=== PATIENT | female | born 1955 | race Caucasian/White ===

== ENCOUNTER 2020-03-02 08:15 | Inpatient (IN) | payer OTHER, MEDICARE ==
[~2020-03-02] VITALS: Ht 157.5 cm; Wt 40.0 kg
--- NOTE | 2020-03-02 12:45 | NUR ---
PT ARRIVED ON UNIT AT 1208. PT IS AAOX4. PT HAS LABORED BREATHING WITH RETRACTIONS PRESENT. ALL LOBES ARE VERY TIGHT AND HAVE EXP. WHEEZING PRESENT. ALSO HEARD SOME RALES. PT OVERALL HAS VERY POOR HYGENE. ABD SOUNDS ARE PRESENT. PT ALSO HAS VERY POOR NUTRITION IT SEEMS. PT STATED THAT SHE HAS NOT LEFT HER HOUSE IN YEARS. PT HAS +2 TO +3 PITTING LILIANA FROM THE KNEES DOWN TO HER FEET BILATERALLY. ALL TOES ARE COOL AND VERY CYANOTIC IN APPEARANCE. PT STATED THAT HER TOES HAVE BEEN LIKE THIS FOR 2WKS. CAP REFILL IS ABOUT 5 SECONDS ON ALL TOES. THEY ARE ALSO COOL TO THE TOUCH. WILL SUGGEST TO PUT PT ON BI-PAP. WILL CONTINUE TO MONITOR.
--- NOTE | 2020-03-02 14:00 | NUR ---
IN PTS ROOM TO GIVE IV LASIX. PTS O2 DROPPING TO 82% ON 5L NC. DR SANABRIA NOTIFIED. PLACED ON 15L NON REBREATHER. O2 SAT UP TO 100%. RT NOTIFIED TO BRING BIPAP TO PTS ROOM. ORDER FOR CATHETER. PLACED WITH 12 ML RETURN.
--- NOTE | 2020-03-02 14:35 | NUR ---
PT MAINTAINING O2 SAT IN MID 90S. PLACED BACK ON 5L/NC. 95%.
--- NOTE | 2020-03-02 15:00 | NUR ---
PT NOW ON BI-PAP SINCE SHE DROPPED HER O2 SATS INTO THE 80'S AND HAD TO BE ON 15L O2 NON-REBREATHER UNTIL HER ROOM WAS TURNED INTO A NEGATIVE PRESSURE ROOM. O2 SATS ARE WDL NOW. PT NOW ALSO HAS A ALBERTO DUE TO LASIX ADMINISTRATION.
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
--- NOTE | 2020-03-02 18:56 | NUR ---
CALLED MD WEEKS FOR LOW BP'S. RECEIVED ORDERS. PT IS ASYMPTOMATIC. PT NOW ON 4L 02 NC. RR 20 OR BELOW.
--- NOTE | 2020-03-02 19:15 | NUR ---
Report received, orders acknowledged.
--- NOTE | 2020-03-02 20:15 | NUR ---
Patient laying in bed watching tv. 500 ml bolus of LR hung. PM medications given. Patient on 4LNC, SpO2 of 95%. Vitals taken, assessment complete. Doppler used to palpate pedal pulses. 2+ edema noted in bilateral lower extremities up to the knees. Patient reports "my legs are half as swollen now as they were this morning." Lung sounds are dim and tight throughout all lobes, with expiratory wheezes auscultated. RT in room to administer neb tx. Bipap placed on patient at 12/5 with an FiO2 of 40% during medication administration. Bilateral toes are cold to the touch with cyanosis noted past the nail beds, cap refill sluggish at 4-6 seconds. Patient denies needs at this time, call light within reach.
--- NOTE | 2020-03-02 21:30 | NUR ---
Patient laying in bed watching tv. LR bolus finished infusing, patient saline locked. New CPOX put in place. Patient requests break from bipap, which is accommodated. 4LNC in place, SpO2 of 95%. Patient educated on fluid restriction and 2gm NA diet, patient agreeable. 2144 - Patient back on bipap at 12/5, FiO2 of 40%, SpO2 of 94%, RR of 16. Denies further needs at this time, call light within reach.
--- NOTE | 2020-03-02 23:10 | NUR ---
Patient sleeping in bed with bipap on, settings at 12/5 with an FiO2 of 40% with an SpO2 of 95%, RR of 16. Rouses to voice. Vitals taken, assessment complete. 2+ edema noted in bilateral lower extremities up to the knees. Lung sounds dim and tight throughout all lobes. Urine output of 75 mls over last two hours. Patient requests break from bipap, which is accommodated. 4LNC in place, SpO2 of 97%. Patient requests water, which is provided. Systolic blood pressure ranging from 82-87 over last hour. 2330 - Dr. Stephenson notified of patient's urine output and blood pressures. Orders acknowledged for 500 ml bolus of LR.
--- NOTE | 2020-03-02 23:48 | NUR ---
Patient sleeping in bed, rouses easily to voice. 500 ml bolus of LR infusing. Patient back on bipap at 12/5, FiO2 of 40%, SpO2 of 96%. Denies further needs, call light within reach.
--- NOTE | 2020-03-03 01:30 | NUR ---
Patient sleeping in bed with bipap on: settings at 12/5, Fi02 of 40%, SpO2 of 95%, RR of 16. Urine output of 65 mls from nunn. Systolic pressures in the low 80's. Call light within reach.
--- NOTE | 2020-03-03 01:45 | NUR ---
Dr. Stephenson called and notified of patient's urine output and blood pressure. Orders acknowledged for norepinephrine gtt.
--- NOTE | 2020-03-03 02:27 | NUR ---
Patient sleeping in bed with bipap on: settings at 12/5, FiO2 of 40%, SpO2 of 96% with a RR of 16. Levophed gtt hung at 4mcg/min. IV site patent and benign with arm board in place on right arm. Call light within reach.
--- NOTE | 2020-03-03 03:00 | NUR ---
Patient sleeping in bed with bipap on: settings at 12/5, FiO2 of 40%, SpO2 of 99%, RR of 20. Levophed gtt infusing at 4 mcg/min. BP of 131/80 (92). Levophed gtt titrated to 2 mcg/min. Call light within reach.
--- NOTE | 2020-03-03 05:00 | NUR ---
Patient up to BSC with 1PA, steady on feet. Small, formed BM produced. Returns to bed with 1PA. IV levophed gtt infusing at 2 mcg/min. Patient on 4LNC with an SpO2 of 100%, RR of 16. 530 - Labs drawn and sent to lab.
--- NOTE | 2020-03-03 08:25 | NUR ---
PT SITTING UP IN BED WATCHING TV, BROUGHT IN BREAKFAST HELPED TO GET SCOOTED UP IN BED. PT ALERT AND ORIENTED X4, DENIES PAIN, NAUSEA, AND SOB AT THIS TIME. PT IS COOPERATIVE AND POLITE. IV SITE IS INTACT, NO REDNESS OR SWELLING NOTED, PT DENIES PAIN AT THE SITE.
--- NOTE | 2020-03-03 10:23 | NUR ---
levophed drip off at 1018. pt up ambulated one person assist to the bathroom.
--- NOTE | 2020-03-03 10:35 | NUR ---
ALL LINENS CHANGED ON BED, PT REFUSED GOWN CHANGE AT THIS TIME. PT ALSO REFUSED BATH OR ORAL CARE AT THIS TIME. PT STANDS UP OUT OF BED WITH ONE PERSON STANDBY ASSIST. AMBULATES TO THE BATHROOM WITH ONE PERSON ASSIST. PT SITTING ON THE TOILET, ABLE TO HAVE A SMALL BM. PT HAS ALBERTO IN, SOMETIMES LEAKAGE OF URINE NOTED AROUND ALBERTO. PT NOT INTERESTED IN BRUSHING TEETH AT THE SINK AT THIS TIME. PT AMBULATES TO CHAIR. CALL LIGHT WITHIN REACH. ALL LINENS ON BED CHANGED. PT NOW ON 2L O2 VIA NC, JENIFFER WELL.
--- NOTE | 2020-03-03 11:55 | NUR ---
PT SITTING UP IN CHAIR AT THIS TIME WITH EYES CLOSED. PT HAS CALL LIGHT WITHIN REACH. ALL VITALS ARE WNL AT THIS TIME. PT REMAINS ON 2L NC, O2 SAT IS 97%.
--- NOTE | 2020-03-03 14:25 | NUR ---
TURNED PT 02 DOWN TO 2L NC HER O2 SAT IS 100%. PT IS SITTING UP IN BED WATCHING TV. HAVE ENCOURAGED PT TO INTAKE MORE PO FLUIDS.
--- NOTE | 2020-03-03 17:04 | NUR ---
Spoke with pt by phone for CM assessment as Covid test has not returned. Pt states she lives in [place] with her spouse. She denies seeing a Dr. in > 20 years and does not have a PCP. She states her spouse boss has suggested Dr. Ramirez's office. She denies use of any DME and takes no meds. Plans on going home with her spouse when cleared medically. Called and was able to schedule an appt for Kelsy to establish care with Dr. Jovon Brice at [facility] as requested. Appt Nicole 1 @1400. Pt needs to arrives at 1340. Rn notified in CCU as pt is sleeping. When I returned.
--- NOTE | 2020-03-03 17:30 | NUR ---
AT ABOUT 1700 PT LEFT THE UNIT VIA WHEELCHAIR WITH RN AND COOLING MACHINE OPERATOR. PT ALERT AND ORIENTED X4, REPORTS SOME ANXIETY ABOUT CT SCAN. PT EDUCATED. PT ABLE TO JENIFFER PROCEDURE WELL. PT REPORTS "I FEEL BETTER NOW THAT IT'S OVER". PT TAKEN BACK TO CCU VIA WHEELCHAIR. PT BACK TO BED, DINNER IS AT THE BEDSIDE. PT ASSISTED TO REPOSITION TO EAT, AND ASSISTED TO CHARGE CELL PHONE. PT HAS CALL LIGHT WITHIN REACH.
--- NOTE | 2020-03-03 17:48 | EKG ---
[facility] [address] [place], [place] [address] Signed Sinus rhythm with short [place] Possible Left atrial enlargement Right axis deviation Anteroseptal infarct , age undetermined Abnormal ECG No previous ECGs available Confirmed by RAUDEL WEEKS DO ([id number]) on 03/03/2020 5:48:10 PM Electronically Signed By: RAUDEL WEEKS DO 03/03/20 1748 PATIENT NAME: FLORENCIA ADAMS Electrocardiogram DATE OF : 53 PHYSICIAN: RAUDEL WEEKS DO REPORT #: [id number] REPORT IS CONFIDENTIAL AND NOT TO BE RELEASED WITHOUT AUTHORIZATION
--- NOTE | 2020-03-03 18:30 | NUR ---
PT TALKING ON CELL PHONE WITH , NO SOB NOTED. PT ABLE TO EAT 100% OF DINNER. PT DENIES PAIN, NAUSEA, AND SOB.
--- NOTE | 2020-03-03 19:15 | NUR ---
Report received, orders acknowledged. Patient up to BSC, feels urge to have a bowel movement. Call light at patient's side.
--- NOTE | 2020-03-03 19:30 | NUR ---
Patient calls, finished at BSC. Would like to return to bed. 1PA to the bed. RT in room to administer neb tx. Assessment complete. 2+ pitting edema noted in bilateral lower extremities. Expiratory wheezes heard throughout all lung ramirez. Patient states "I feel pretty good tonight." Warm blankets provided, water refreshed. Denies further needs, call light within reach.
--- NOTE | 2020-03-03 21:00 | NUR ---
Patient laying in bed watching tv. Bed bath and shower cap provided. New gown for patient. Patient not interested in brushing teeth, would like to wait until the morning. 4LNC in place, SpO2 of 93%. HR in the 100's. Plan to resume bipap at 2200, patient agreeable. Call light within reach.
--- NOTE | 2020-03-03 22:00 | NUR ---
Patient laying in bed watching tv. Bipap put on patient: settings at 12/5, FiO2 of 40%, RR of 16, SpO2 of 95%. HR in the 90's. Call light within reach.
--- NOTE | 2020-03-03 22:58 | NUR ---
Patient requests a break from bipap, which is accommodated. 4LNC in place, Sp02 of 94%. PO intake with bipap mask off. Denies any needs at this time, call light within reach.
--- NOTE | 2020-03-03 23:28 | NUR ---
Patient SpO2 fluctuating between 87-89% on 2LNC. Bipap put on patient: settings at 12/5, Fi02 of 40%, RR of 14. SpO2 increases to 94% on bipap. Call light within reach.
--- NOTE | 2020-03-04 00:29 | NUR ---
Patient laying in bed watching tv, drowsy. Assessment complete. Lung sounds tight throughout all lung ramirez with expiratory wheezes auscultated. 2+ pitting edema noted in right lower extremity up to the knee. 1+ pitting edema noted in the left lower extremity, ending six inches below the knee, which is improved from earlier assessment. Urine output of 550 mls. Water refreshed. 2LNC in place with an SpO2 of 92-94%. Patient denies further needs, call light within reach.
--- NOTE | 2020-03-04 01:35 | NUR ---
Patient sleeping in bed, respirations even and unlabored. 2LNC in place, SpO2 of 94%, RR of 14. Call light within reach.
--- NOTE | 2020-03-04 02:09 | NUR ---
Patient sleeping with 2LNC in place, SpO2 of 91%. Bipap put on patient: settings at 12/5, Fi02 of 40%, RR of 14, and an SpO2 of 94%. Patient falls back asleep easily. Call light within reach.
--- NOTE | 2020-03-04 03:35 | NUR ---
Patient sleeping in bed with bipap on: settings at 12/5, Fi02 of 40%, SpO2 of 94%. Patient requests break from bipap, 2LNC in place. Sp02 falls to 85-88% on 2LNC. Oxymask placed on patient at 2LNC, Sp02 climbs to 96-98%. Assessment complete, lung sounds dim throughout all ramirez. Expiratory wheezes noted in bases. 100 mls emptied from nunn catheter. Pitting edema noted in bilateral extremities, 2+ on right leg and 1+ on left leg. Vital signs taken. Patient denies further needs, falls back asleep easily. Call light within reach.
--- NOTE | 2020-03-04 04:08 | NUR ---
RT in room to administer neb tx, patient declines tx at this time.
--- NOTE | 2020-03-04 04:16 | NUR ---
Patient titrated to 1L oxymask, Sp02 ranges from 96-98%. Patient sleeping in bed, call light within reach.
--- NOTE | 2020-03-04 05:14 | NUR ---
Lab in room with patient for blood draw
--- NOTE | 2020-03-04 07:46 | NUR ---
PT AWAKE AND ALERT X4, SITTING UP IN BED ON ROOM AIR, O2 SAT IS 95%. PT ORDERED BREAKFAST. APPEARS COMFORTABLE AT THIS TIME.
--- NOTE | 2020-03-04 09:05 | NUR ---
pt boosted up in bed and assisted to reposition for eating breakfast. pt placed on 2L O2 via NC for eating. pt is alert and oriented x4, denies pain, nausea, and sob. call light is within reach.
--- NOTE | 2020-03-04 11:05 | NUR ---
full report given to Edwina PARDO via phone, all questions answered.
--- NOTE | 2020-03-04 11:45 | NUR ---
PT IV SITE IS INTACT, NO REDNESS OR SWELLING NOTED, FLUSHES EASILY. PT ASSISTED UP TO AMBULATED TO THE BATHROOM, IN TRANSIT SLIGHT INCONTINENCE OF STOOL. PT ABLE TO HAVE MEDIMUM SIZE SEMISOFT STOOL. PT ASSISTED WITH JAVON CARE, GOWN CHANGED. PT ONE PERSON ASSIST BACK TO BED. DURING THIS TIME UP TO THE TOILET PT ON ROOM AIR DUE TO URGENCY. ONCE PT BACK TO BED, O2 SAT IS 72% ON ROOM AIR, OXYMASK PLACED BACK ON PT AT 5L, O2 SATS RECOVERED TO THE 90'S WITHIN 5 MINUTES. PT THEN ASSISTED TO THE CHAIR IN PREPARATION TO TRANSFER TO MED/SURG. PT REPORTS FEELING MUCH BETTER.
--- NOTE | 2020-03-04 12:00 | NUR ---
PT ARRIVED TO THE FLOOR VIA CHAIR. PT ALERT AND ORIENTED AND HAS NO CONPLAINTS AT THIS TIME. PT ON THE PHONE WITH HER DURING TRANSFER PROCESS TO HELP WITH SOME ANXIETY. PT DOES NOT TO BE ANXIOUS AT THIS TIME
--- NOTE | 2020-03-04 12:01 | NUR ---
PT TRANSFERED TO ROOM 120 ON MED/SURG, ALL PERSONAL BELONGINGS WENT WITH PT. PT TRANSFERED VIA CHAIR WITH 3L O2 VIA OXYMASK. PT ABLE TO TALK ON THE PHONE WITH DURING TRANSFER. PT REMAINS ALERT AND ORIENTED X4, COOPERATIVE AND POLITE.
--- NOTE | 2020-03-04 14:08 | NUR ---
PATIENT AWAKKE IN BED, OXYMASK ON. VITALS AND I&OS DONE AND CHARTED. NOTIFIED EDVIN GOODE OF LOW BP. PT IN WITH PATIENT NOW.
--- NOTE | 2020-03-04 14:20 | NUR ---
IN PTS ROOM TO GIVE 60MG OF LASIX. PT STATES THAT WHEN THEY PUSHED IT EARLIER THAT IT LEFT A HORRIBLE TASTE IN HER MOUTH, THIS RN PUSHED THE MED VERY SLOWLY AND FLUSHED SLOWLY WELL. ASKED PT IF SHE HAD THE WEIRD TASTE AT THIS TIME AND PT DENIED. PLACED THE LEMON GLYCERIN SWABS ON PTS BEDSIDE TABLE IN CASE SHE GETS THE BAD TASTE IN HER MOUTH. OCCUPATIONAL THERAPY IN ROOM WORKING WITH PT AT THIS TIME
--- NOTE | 2020-03-04 17:27 | NUR ---
PATIENT AWAKE IN BED. VITALS AND I&OS DONE AND CHARTED. CALL LIGHT IN REACH. NO OHTER NEEDS
--- NOTE | 2020-03-04 20:09 | NUR ---
COMMUTER TRAIN OPERATOR ROUNDING NOTE. PT RESTING IN BED AWAKE, WATCHING TV. OXYMASK IN PLACE. PT DENIES QUESTIONS, CONCERNS, OR NEEDS. CALL LIGHT IN REACH. ROOM IN VIEW OF RN STATION. WHITE BOARD UPDATED.
--- NOTE | 2020-03-04 20:32 | NUR ---
In bed, Oxymask in place, Bipap at bedside, SL patent. Coop with assessment fluidsa at bedside
--- NOTE | 2020-03-04 21:33 | NUR ---
Anxious, reassured easily, repositions self in bed. Gets mariella tx.
--- NOTE | 2020-03-05 00:58 | NUR ---
resating, eys closed, wearing oxymask. calm. call light at hands reach
--- NOTE | 2020-03-05 06:29 | NUR ---
ON 4L OXYMASK, NO SOB WITH EXERTION. LUNGS DIM WITH FINE CRACKLES AT BASES. HAD 1 EPISODE OF FEELING VERY ANXIOUS, REASSURED, CALMED DOWN. SLEPT WELL. 1PA, SLIGHTLY UNSTEADY GAIT AT TIMES. L ABOVE THE ELBOW ARM AMPUTATION F/C PATENT, DRAINING QS URINE. TOLERATING FLUIDS AND DIET WELL. LABS DRAWN THIS AM. COOP. UP TO CHAIR AT THIS TIME. DAILY STANDING WEIGHT 43.6KG
--- NOTE | 2020-03-05 06:38 | NUR ---
NHUNG FU ASSISTED PATIENT TO BATHROOM AND BACK TO BED. PATIENT RESTING IN BED, CALL LIGHT IN REACH. NO FURTHER NEEDS AT THIS TIME
--- NOTE | 2020-03-05 07:46 | NUR ---
received report from bam cornelius. pt appears to be resting at this time with respirations noted and call light within reach
--- NOTE | 2020-03-05 09:55 | NUR ---
IN PTS ROOM TO GIVE MEDS AND DO ASSESSMENT. WHILE PASSING MEDS. PT STATED THAT SHE NEEDED TO USE THE RESTROOM "RIGHT NOW" PT WAS GETTING UP IT WAS NOTICED THAT PT WAS INCONTINENT IN THE BED. THIS RN GOT PT TO THE BEDSIDE COMMODE AND STARTED CLEANING THE BED. THIS RN ASKED MANE HOOKER TO ASSIST IN HELPING CHANGE THE LINIEN AND PERFORM CATH CARE ON PT. PT BECAME OVERWHELMED WITH ALL OF THIS GOING ON AND HAD ANXIETY ATTACK THAT LED TO HER BECOMING SHORT OF BREATH. THIS RN EDUCATED PT TO KEEP HER OXYMASK ON AND TAKE GOOD DEEP BREATHS. PT ABLE TO CALM HERSELF BY TAKING DEEP BREATHS. ABLE TO GET PT CLEANED UP WITH A TOTAL BED CHANGE AND GOWN CHANGE.
--- NOTE | 2020-03-05 10:47 | NUR ---
PATIENT HAD INCONT BM. GOT UP TO BSC. LINENS CHANGED. JAVON CARE, CATH CARE DONE. NEW GOWN. PATIENT NOW BACK TO BED, 1PA, WATCHING TV. CALL LIGHT IN REACH. NO FURTHER NEEDS AT THIS TIME.
--- NOTE | 2020-03-05 13:23 | NUR ---
in pts room to give afternoon meds and do assessment. pt has no complaints at this time
--- NOTE | 2020-03-05 14:07 | NUR ---
PATIENT IN BED RESTING. WARM SHOWER CAP GIVEN. FRESH WATER GIVEN. CALL LIGHT IN REACH. NO FURTHER NEEDS AT THIS TIME.
--- NOTE | 2020-03-05 18:51 | NUR ---
PATIENT IN BED WATCHING TV. CALL LIGHT IN REACH. NO FURTHER NEEDS AT THIS TIME.
--- NOTE | 2020-03-05 19:06 | NUR ---
PATIENT HAD JAVON CARE ALBERTO CARE THIS MORNING BUT HAS REFUSED OTHER CARE THROUGH OUT THE DAY BECAUSE SHE SIAD MOVING AROUND MADE HER SICK.
--- NOTE | 2020-03-05 20:33 | NUR ---
COMBINATION MACHINE TOOL SETTER ROUNDING NOTE. PT RESTING IN BED WATCHING TV. DECLINES QUESTIONS, CONCERNS, OR NEEDS AT THIS TIME. CALL LIGHT IN REACH. WHITE BOARD UPDATED.
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
--- NOTE | 2020-03-05 22:21 | NUR ---
EMPTIED ALBERTO BAG 75 ML. PATIENT REFUSED TO HAVE ALBERTO CARE. STATED SHE IS HAVING HARD TO BREATHE. CHEKED O2 SATURATION AND HAVE OXYMASK ON WENT TO 9I%. PATIENT STATED SHE IS OKAY BREATHING NOW. PRIMARY RN NOTIFIED.
--- NOTE | 2020-03-05 22:40 | NUR ---
RESTING, O2 2L OXYMASK IN PLACE, UO 75CC THIS SHIFT. DR CARDENAS NOTIFIED VIA WRITTEN NOTE. NO NEW ORDERS. CALL LIGHT AT BEDSIDE, ON FLUIDS RESTRICTIONS TOLERATING WELL
--- NOTE | 2020-03-06 00:55 | NUR ---
resting, O2 2L Oxymask, no resp distress noted, resp even, unlabored turns self in bed. call light and fluids at bedside
--- NOTE | 2020-03-06 02:17 | NUR ---
RESTING, OXYMASK IN PLACE, NO SOB OR RESP DISTRESS NOTED AT THIS TIME. HOB ELEVATED TO HER COMFORT, F/C PATENT. CALL LIGHT AND FLUIDS AT BEDSIDE,
--- NOTE | 2020-03-06 02:57 | NUR ---
Pt stated she was hot and could not breath, reapplied O2 mask, changed pt gown, removed blankets, turned heat down, called RN to assist.
--- NOTE | 2020-03-06 02:57 | NUR ---
Pt woke up very anxious "i was having a nightmare stated", Oxymask at 2L sats were 70% c/o being hot, anxious, feeling warm, had taken Oxymask off,.O2 was momentarily increased to help pt catch up, plus CDB. Reassured. O2 Back on o2, at this time sats are 90% on 2L. calmer. coop with assessment, lungs with faint crackles t/o. Helped with repositioning, f/c patent. watching tv. fresh fluids at bedside
--- NOTE | 2020-03-06 05:59 | NUR ---
sLEPT MOST OF THI SSHIFT, COOPERATIVE, ON 2l oXYMASK IN PLCAE, HAD ONE EPISODE OF ANXIETY WITH SOB, AND SHE TOOK OFF HER O2 MASK., REASSURED AND CALMED DOWN, SATS UP 90% AFTERWARDS. HELPS WITH TURNING IN BED 1PA, L ABOVE THE ELBOW AMPUTAION . F/C PATENT, DRAINING DARK YELLOW URINE, LOW OUTPUT, MD AWARE. PT TOLERATING LIQUIDS WELL, NO C/O PAIN. GETS NEBS. FINE CRACKLES , SOB WITH EXERTION NOTED WHEN AMBULATING TO BR X1. FALL PRECAUTIONS IN PLACE.
--- NOTE | 2020-03-06 06:02 | NUR ---
JAVON/ALBERTO CARE DONE.
--- NOTE | 2020-03-06 06:14 | NUR ---
sLEPT MOST OF THI SSHIFT, COOPERATIVE, ON 2l oXYMASK IN PLCAE, HAD ONE EPISODE OF ANXIETY WITH SOB, AND SHE TOOK OFF HER O2 MASK., REASSURED AND CALMED DOWN, SATS UP 90% AFTERWARDS. HELPS WITH TURNING IN BED 1PA, L ABOVE THE ELBOW AMPUTAION . F/C PATENT, DRAINING DARK YELLOW URINE, LOW OUTPUT, AWARE. PT TOLERATING LIQUIDS WELL, NO C/O PAIN. GETS NEBS. FINE CRACKLES , SOB WITH EXERTION NOTED WHEN AMBULATING TO BR X1. FALL PRECAUTIONS IN PLACE. DAILY STANDING WEIGHT 40.3 KG. aWAKE AND CALM AT THIS TIME. F/C PATGENT
--- NOTE | 2020-03-06 07:10 | NUR ---
received report from bam cornelius. pt appears to be resting with respirations noted and call light within reach
--- NOTE | 2020-03-06 09:30 | NUR ---
IN PTS ROOM TO GIVE MORNING MEDS AND DO PTS ASSESSMENT. PT STATES WHEN THIS RN ENTERS THAT SHE THINKS SHE WAS INCONTINENT OF STOOL. PT WAS INDEED INCONTINET OF STOOL THIS AM. THIS RN TO HOLD PTS MIRALAX. MANE HOOKER ASSISSTED THIS RN TO CLEAN PT UP AND PERFORM CATH CARE. PT HAD TO TAKE TWO BREAKS DUE ANXIETY INDUCED SHORTNESS OF BREATH. PT ABLE TO CALM HERSELF DOWN WITH GOOD DEEP BREATHING.
--- NOTE | 2020-03-06 10:24 | NUR ---
IV attempt X2 at this time failed. Immediate blood return that blow with attempt to advance catheter.
--- NOTE | 2020-03-06 10:38 | NUR ---
PATIENT IN BED RESTING. PATIENT HAD INCONT BM EARLIER, JAVON CARE AND CATH CARE DONE. LINENS CHANGED. OFFERED SHOWER CAP, BEDBATH WIPES, ORAL CARE AND AM CARE, PATIENT REFUSED AT THIS TIME. CALL LIGHT IN REACH. NO FURTHER NEEDS AT THIS TIME.
--- NOTE | 2020-03-06 14:15 | NUR ---
IN PT ROOM TO CHECK ON PT AND DO ASSESSMENT. PTS AT BEDSIDE. THIS RN DID SOME PT EDUCATION IN REGARDS TO PTS MEDS ESPECIALLY LASIX AND THAT SHE AND HER SHOULD CONSIDER ADDING POTASSIUM INTO HER DIET. ALSO DISCUSSED WITH PT ABOUT KEEPING HER FEET UP TO PREVENT SWELLING. ALSO DISCUSSED WITH PT ABOUT STAYING ON A LOW SODIUM DIET
--- NOTE | 2020-03-06 17:52 | NUR ---
PATIENT IN BED WATCHING TV. PATIENT STILL REFUSING SHOWER AND ORAL CARE. CALL LIGHT IN REACH. NO FURTHER NEEDS AT THIS TIME.
--- NOTE | 2020-03-06 20:01 | NUR ---
IN BED, O2 2L NC IN PLACE, TOLERATING WELL, COOP WITH VS ANDASSESSMENT, LUNGS DIM AND MUCH IMPROVED THAN YESTERDAY, AFFECT IMPROVED, SMILING, CALM. REASSURED. REPOSITIONS SELF IN BED, TOLERATING FLUIDS RESTRICTION WELL. CALL LIGHT AT BEDSIDE
--- NOTE | 2020-03-06 23:03 | NUR ---
O2 2L NC, RESTING, EYES CLOSED, HOB ELEVATED TO HER COMFORT, F/C PATENT. CALM FLUID RESTRICTION IN PLACE. NO EMESIS. CALL LIGHT AT BEDSIDE
--- NOTE | 2020-03-07 05:55 | NUR ---
PT SLEPT, O2 WEANED DOWN TO 1L NC, SATS 97% STEADY, NO COUGH NO SOB AT THIS TIME, LUNGS CLEAR UPPERS, DIM AT BASES. L ABOVE ELBOW AMPUTAION. F/C DRAINING QS DARK YELLOW URINE, HAD 1 BM AT BEGINING OF SHIFT. NO C/O PAIN, TOLERATIANG 1800 CC FLUIDS RESTRICTION, NO ANXIETY EPISODES THIS SHIFT, CALM USES CALL LIGHT APPROPRIATELY
--- NOTE | 2020-03-07 07:15 | NUR ---
REVEIVED REPORT FROM ROBERT PARDO. PT APPEARS TO BE RESTING AT THIS TIME WITH RESPIRATIONS NOTED AND CALL LIGHT WITHIN REACH
--- NOTE | 2020-03-07 09:50 | NUR ---
IN PTS ROOM TO GIVE MORNING MEDS AND TO DO PTS ASSESSMENT. PT SLEEPING AND IS HARD TO WAKE UP. PT WAS INCONTINENT OF BOWEL AND HER ALBERTO CATHETER HAD LEAKED. MANE BARRONA IN TO HELP THIS RN TO DO A FULL BED CHANGE. PT STATED THAT SHE CAN FEEL HER ALBERTO CATHETER BETTER THAN SHE CAN FEEL WHEN SHE HAS TO HAVE A BOWEL MOVEMENT. PT DID HAVE AT LEAST 2 ANXITEY ATTACKS WHILE DOING BED CHANGE, BUT PT WAS ABLE TO SELF SOOTHE AND CALM HERSELF DOWN
--- NOTE | 2020-03-07 10:33 | NUR ---
PATIENT HAD LARGE INCONT BM. JAVON CARE, CATH CARE, SKIN CARE DONE. PATIENT HAS A LOT OF ANXIETY WHEN DOING PATIENT CARE SO PATIENT REFUSED ALL OTHER CARE AT THIS TIME. RN IN ROOM HELPING WITH PATIENT CARE. LINENS CHANGED. CALL LIGHT IN REACH. NO FURTHER NEEDS AT THIS TIME.
--- NOTE | 2020-03-07 13:57 | NUR ---
1215 O2 HOME EVAL WIDE FLUCTUATION IN PERIPHERAL SATURATIONS WERE NOTED PT WAS PLACED ON NASAL ALAR O2 PROBE THIS IMPROVED MEASUREMENTS TO A DEGREE THAT WE WERE ABLE TO TO PERFORM O2 HOME EVAL. TEST WAS PERFORMED WITH ASSISTANCE FROM PHYSICAL THERAPY. AT REST ON RA PT SAT 77-80%, PT REQUIRED 2L/M OXYMASK TO MAINTAIN SATS WHILE SITTING AT BEDSIDE. WITH EXERCISE O2 HAD TO BE TITRATED UP TO 10L/M OXYMASK PT PREVENT DESATUATION BELOW 90%. AT 10L/M PT WAS ONLY ABLE TO TOLERATE BRIEF PERIODS OF EXERCISE BEFORE GETTING SOB AND NEEDING TO SIT AND REST.
--- NOTE | 2020-03-07 14:18 | NUR ---
IN PTS ROOM TO DO ASSESSMENT. PT STATES THAT SHE FEELS SLIGHTLY SHORT OF BREATH. PT HAS HAD A LOT OF PEOPLE IN AND OUT OF HER ROOM TODAY AND HAS HAD A LOT OF ANXIETY IN REGARDS TO THAT. SHORTNESS OF BREATH DUE TO COPD VS. ANXIETY PT DENIES NEEDING ANYTHING AT THIS TIME.
--- NOTE | 2020-03-07 14:37 | NUR ---
PATIENT IN BED WATCHING TV. LOW OUTPUT, RN NOTIFED. CALL LIGHT IN REACH. NO FURTHER NEEDS AT THIS TIME.
--- NOTE | 2020-03-07 14:45 | NUR ---
SPOKE TO PATIENT IN ROOM. PATIENT STILL INTENDS TO RETURN HOME WITH AT DISCHARGE. PATIENT AWARE SHE MAY NEED HOME OXYGEN AT DISCHARGE. DISCUSSED THAT SOMETIMES INSURANCE WILL NOT COVER HOME O2 FOR ACUTE PERIOD. DISCUSSED WHAT GALLEGOS CAN BE FOR A MONTH. DISCUSSED THAT THE NEED CAN BE REASSESSED IN 3-4 WEEKS AT PCP AND IF SHE STILL QUALIFIES THEY MAY PAY. SHE STATES UNDERSTANDING. PATIENT CANNOT TALK MORE THAN A FEW WORDS EASILY WITH SOB. SHE HAS NO QUESTIONS AT THIS TIME.
--- NOTE | 2020-03-07 15:45 | NUR ---
BEDSIDE REPORT FROM RUSSEL - PT DENIES NEEDS, CALL LIGHT IN REACH
--- NOTE | 2020-03-07 16:46 | NUR ---
WENT IN TO DISCUSS WITH PATIENT NEED FOR OXYGEN AT HOME. DISCUSSED OPTIONS IN AREA. SHE STATES SHE WANTS TO TALK WITH HER . WHILE I WAS THERE SHE ASKED FOR HELP TO USE COMMODE. ASKED IF SHE HAS BEEN ABLE TO GET TO BATHROOM WITH MINIMAL ASSIST. SHE STATES NO. WE DISCUSSED THAT SHE WANTS TO RETURN HOME TOMORROW FOR DISCHARGE BUT THAT PT NOTES STATES SHE CANNOT STAND WELL ON OWN DUE TO UNSTEADY AND SOB. SHE AGREES SHE CAN'T. ASKED IF SOMEONE WAS GOING TO BE WITH HER DURING THE DAY WHILE HER WORKS, SHE STATES NO. ASKED IF SHE THINKS SHE CAN GET SOMETHING TO EAT, OR USE BATHROOM ALONE AT HOME. SHE STATES "NO, PROBABLY NOT". ASKED IF SHE WOULD BE WILLING TO GO TO [facility] FOR CARE AND TIME TO SEE IF SHE CAN GET STRONGER. SHE STATES SHE DOESN'T KNOW. DISCUSSED WHERE THOSE ARE LOCATED IN THE AREA. SHE WANTS TO TALK WITH HER . DISCUSSED THAT SHE IS UNSURE WHAT SHE WANTS GOING FORWARD. SHE STATES SHE WANTS TO SEE THE NEW PCP AND SEE IF SHE CAN GET ANY BETTER. DISCUSSED THAT PERHAPS A CARE CONFERNCE CAN BE HELD WITH HER HERE TO GO OVER HER SITUATION AND GIVE THEM A CHANCE TO ASK QUESTIONS TO HELP HER DECIDE. SHE STATES SHE WILL TALK WITH HIM AFTER WORK. STAFF IN TO HELP HER.
--- NOTE | 2020-03-07 17:38 | NUR ---
PT ASSISTED TO ORDER DINNER. DENIES OTHER NEEDS AT THIS TIME.
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
--- NOTE | 2020-03-07 18:56 | NUR ---
PATIENT IN BED WATCHING TV. WARM BLANKET GIVEN. CALL LIGHT IN REACH. NO FURTHER NEEDS AT THIS TIME.
--- NOTE | 2020-03-07 19:05 | NUR ---
BEDSIDE REPORT RECEIVED FROM OFFGOING RNERIN. PT'S ENTERING THE ROOM REPORT ENDING.
--- NOTE | 2020-03-07 21:30 | NUR ---
PT ASSESSMENT COMPLETE. PT RESTING IN BED WATCHING TV. PT DENIES PAIN OR NAUSEA. STATES THAT SOB IS WNL FOR HER. PT HOLDING OXYMASK TO HER FACE, WHICH SHE STATES IS HER PREFERENCE. LUNG SOUNDS DIM THROUHGOUT ALL LUNG MULLIGAN. BREATHING IS LABORED. 02 @ 2LPM. PT CURRENTLY DECLINES NEBS, WILL CALL IF SHE DECIDES SHE WANTS A TREAMENT.ALBERTO CATH DRAINING YELLOW CONCENTRATED URINE. PT BOOSTED IN BED, VS OBTAINED. PT DENIES FURTHER NEEDS AT THIS TIME. CALL LIGHT IN REACH.
--- NOTE | 2020-03-07 23:11 | NUR ---
PT RESTING IN BED WITH EYES CLOSED. WAKES EASILY WHEN VP PUBLISHER DEVELOPMENT OPENS THE DOOR. STATES THAT SHE WAS LISTENING TO HER TV AND FELL TO SLEEP. AGREES WITH VP PUBLISHER [employer]ELOPMENT THAT SHE IS VERY COMFORTABLE RIGHT NOW, AND STATES SHE IS MORE COMFORTABLE THAN SHE CAN REMEMBER BEING IN A WHILE. PT DENIES NEEDS, CALL LIGHT IN REACH.
--- NOTE | 2020-03-08 02:00 | NUR ---
PT RESTING IN BED WITH EYES CLOSED. RESPIRATIONS EVEN, APPEAR LABORED. PT DOES NOT WAKE WHILE PERL PROGRAMMER IN DOORWAY. APPEARS TO BE SLEEPING. CALL LIGHT IN REACH.
--- NOTE | 2020-03-08 04:27 | NUR ---
PT UTILIZES CALL LIGHT, REQUESTS TO USE COMMODE. PT UP TO COMMODE AND BACK TO BED WITH 1PA. PT TOLERATED WELL. PT ASSESSMENT COMPLETE DENIES PAIN OR NAUSEA. PT STATES THAT SOB IS ABOUT THE SAME USUAL. LUNG SOUNDS DIM TO ALL LUNG MULLIGAN, BREATHING IS LABORED WITH ACCESSORY MUSCLE USE. [address] @ 2 LPM VIA OXY MASK. ALBERTO CATH DRAINING YELLOW URINE, CONCENTRATED. PT DENIES FURTHER NEEDS AT THIS TIME. CALL LIGHT IN REACH. ROOM IN VIEW OF RN STATION.
--- NOTE | 2020-03-08 07:00 | NUR ---
BEDSIDE HANDOFF REPORT RECEIVED FROM MANAGER STONE RN. PT RESTING IN BED. PT ON 2L OXYMASK. PT DENIES NEEDS AT THIS TIME.
--- NOTE | 2020-03-08 08:30 | NUR ---
PT RESTING IN BED. PT ON 2L OXYMAKS, LABORED BREATHING, LUNG SOUNDS DIMINISHED THROUGHOUT. PT WITH SMALL APPETITE, ATE APPLE SAUCE FOR BREAKFAST, DENIES NAUSEA, BOWEL TONES ACTIVE. PT WITH LEFT ARM AMPUTATION, CMS OTHERWISE INTACT. ALBERTO CATH IN PLACE. PT DENIES OTHER NEEDS AT THIS TIME. PLAN FOR BEDBATH TODAY.
--- NOTE | 2020-03-08 09:00 | NUR ---
In and spoke with Kelsy. Discussed where she would like to go on DC. She would like to go home. Has a lengthy discussion if this is practical as she is unable to care for herself, does not have a caregiver, and her spouse works multimedia services coordinator. Discussed [facility] and cg. She does not know any CG. Discussed this can take 2-3 weeks to set up cg in [facility]. She asks I call her . She states she will do whatever needs to be done. Called and spoke with her Salvatore. He states he is unable to care for Kelsy at home. He works multimedia services coordinator. He also states his concern she cannot care for her self. He would like to speak with Dr. Ribeiro as he has questions concerning her medical condition. He will come in at 12:00 for a family conference in pts' room. Dr. Ribeiro notified.
--- NOTE | 2020-03-08 10:48 | NUR ---
PATIENT IN BED WATCHING TV. OFFERED PATIENT AM CARE, ORAL CARE, AND SHOWER/BED BATH, PATIENT SAID NOT NOW. PATIENT SAID SHE WOULD LET ME KNOW WHEN SHE FEELS UP TO A BED BATH. FRESH WATER GIVEN. CALL LIGHT IN REACH. NO FURTHER NEEDS AT THIS TIME.
--- NOTE | 2020-03-08 11:19 | NUR ---
PT RESTING IN BED. PT DENIES OTHER NEEDS AT THIS TIME.
--- NOTE | 2020-03-08 12:00 | NUR ---
Pt's , Salvatore, in for care conference with myself, Dr. Ribeiro, and his brother by speaker phone. Dr. Ribeiro explained prognosis and options discussed. Salvatore feels pt needs to go to a SNF for at least 20 days until he can get hospice and cg set up in the home. Pt is in agreement. with this. Chart was sent to [facility] this am.
--- NOTE | 2020-03-08 13:53 | NUR ---
PT RESTING IN BED, USING O2 MASK. PT MENTIONED THTA SHE SLEPT REALLY WELL LAST NIGHT. PT ALSO STATED THAT SHE FEELS ALITTLE UNINFORMED ABOUT HER CARE, BUT IS EXPECTING HER TODAY AFTER WORK AND FEELS HE WILL UPDATE HER. GAVE PT Vanita FU AND GREGORIA AND LEAHSSCELI
--- NOTE | 2020-03-08 14:30 | NUR ---
PT RESTING IN BED. OXYMASK LAYING ON CHEST, 02 SATS 68%, OXYMASK RESUMED AND INCREASED TO 5L, PT RECOVERED AND OXYGEN TITRATED TO 2L, LUNG SOUNDS DIMINSHED THROUGHOUT. PT AGREEABLE TO BED BATH, COMPLETED WITH HYPERBARIC TECHNOLOGIST, PT POORLY TOLERATED ACTIVITY, GIVEN REST PERIODS, O2 SATS MONITORED THROUGHOUT BATH. PT WITH ALBERTO CATH LEAKING URINE, PERICARE PERFORMED. PT WITH BLANCHABLE REDNESS TO COCCYX, STAGE 1 DECUBITUS SORE TO BILATERAL HEELS, HEELS FLOATED ON PILLOW. PT DENIES OTHER NEEDS AT THIS TIME. PT EDUCATED ON OXYMASK AND TO KEEP IN PLACE TO PREVENT HYPOXIA.
--- NOTE | 2020-03-08 15:18 | NUR ---
ME AND RN GAVE PATIENT BEDBATH. LINENS CHANGED. JAVON CARE AND CATH CARE DONE. CALL LIGHT IN REACH. NO FURTHER NEEDS AT THIS TIME.
--- NOTE | 2020-03-08 18:38 | NUR ---
PATIENT IN BED WATCHING TV. CALL LIGHT IN REACH. NO FURTHER NEEDS AT THIS TIME.
--- NOTE | 2020-03-08 19:29 | NUR ---
REPORT RECEIVED FROM DAY SHIFT RN. PT LYING IN BED, ALERT AND ORIENTED. 2L/OXYMASK IN PLACE. REMY PATENT. DENIES NEEDS. WHITE BOARD UPDATED. CALL LIGHT IN REACH.
--- NOTE | 2020-03-08 22:59 | NUR ---
V/S AND I&O TALEN AND RECORDED. ALBERTO/JAVON CARE DONE. CHOCOLATE COOKIE PROVIDED.
--- NOTE | 2020-03-08 23:07 | NUR ---
EVENING ASSESSMENT COMPLETE. PT REFUSED SCHEDULED STOOL SOFTENER. UPON ENTERING ROOM PT HAD OXYMASK OFF. SPO2 71%. WITH MASK SPO2 90% ON 2L. RR 24 AND LABORED. ALBERTO CATH LEAKING, PAD CHANGED UNDER PT. ALBERTO CARE DONE. REPOSITIONED IN BED, PT JENIFFER FAIR. EVENING SNACK PROVIDED. PT DENIES FURTHER NEEDS. CALL LIGHT IN REACH .
--- NOTE | 2020-03-09 01:30 | NUR ---
PT RESTING IN BED WITH EYES CLOSED. RESPIRATIONS EVEN AND SLIGHTLY LABORED. NO APPARENT DISTRESS. CALL LIGHT IN REACH.
--- NOTE | 2020-03-09 03:30 | NUR ---
PT RESTING IN BED WITH EYES CLOSED. RR EVEN AND UNLABORED AT THIS TIME.
--- NOTE | 2020-03-09 05:57 | NUR ---
PT SLEPT WELL. ALERT AND ORIENTED. 2L/OXYMASK, PT REMOVES AND REPLACES AD KENNETH. SLOW TO RESPOND R/T SOB. BREATHING LABORED AT TIMES. ALBERTO CATH LEAKING. PT WITH SOME ANXIETY DURING CARES. 1-2PA. PT STAYS WELL WITHIN 1800ML FLUID RESTRICTION.
--- NOTE | 2020-03-09 07:25 | NUR ---
PATIENT RESTING IN BED. PATIENT REFUSED TO WASH HER HANDS AND FACED. WITHE BOARD UPDATED. CALL LIGHT WITHIN REACH. NO OTHER NEEDS AT THIS TIME
--- NOTE | 2020-03-09 07:32 | NUR ---
received report from boom cornelius. pt appears to be resting with respirations noted
--- NOTE | 2020-03-09 09:34 | NUR ---
THIS RN IN PTS ROOM TO GIVE MORNING MEDS AND DO ASSESSMENT. PT AWAKE AND HAS NO COMPLAINTS AT THIS TIME
--- NOTE | 2020-03-09 09:48 | NUR ---
PATIENT RESTING IN BED. RN IN ROOM. VITAL SIGNS AND I&O DONE. LOW BLOOD PRESSURE, OXYGEN SATURATION AND OUTPUT. RN NOTIFIED. CALL LIGHT WITHIN REACH. NO OTHER NEEDS AT THIS TIME
--- NOTE | 2020-03-09 09:50 | NUR ---
Notified by Danilo they will accept to to [facility]. She is questions if pt is on 10L 02. Spoke with Rn and RT. Pt is using 2 l. Called and conference called with Danilo with PT and RN. Questions answered. They will take the pt at 1330 by dov gamez. Alan nut picker wc and 02 from facility for pt to transport. Orders printed and given to Dr. Ribeiro.
--- NOTE | 2020-03-09 11:13 | NUR ---
Spoke with pt's spouse Salvatore. He would like [facility]. At this time he would still like to be able to take Kelsy home when he can get CG set up in the home. Chart faxed.
--- NOTE | 2020-03-09 11:20 | NUR ---
PATIENT RESTING IN BED. FINAL VITAL SIGNS WERE OBTAINED PRIOR TO DISCHARGE FROM THE UNIT
--- NOTE | 2020-03-09 11:56 | NUR ---
CALLED REPORT TO SHIVA PARDO AT [facility] TO DISCUSS PTS STATUS. ALL QUESTIONS ANSWERED AT THIS TIME
--- NOTE | 2020-03-09 12:52 | NUR ---
IN TO CHECK ON PT-SHE IS IN BED, O2 MASK ON. HER BREATHING IS LABORED, SHE IS DOING SOMETHING ON HER PHONE, AND SEEMS VERY PREOCCUPIED. ANSWERS WITH SIMPLY YES AND NO ANSWERS. PT IS TO TRANSFER TO [facility] TODAY. KESHA JASON
--- NOTE | 2020-03-09 13:05 | NUR ---
PATIENT RESTING IN BED. VITAL SIGNS AND I&O DONE. CALL LIGHT WITHIN REACH. NO OTHER NEEDS AT THIS TIME
--- NOTE | 2020-03-10 11:14 | NUR ---
Received a call from pt's spouse Salvatore. He has spoke with [facility], he wanted to know if medicare will pay for this. Updated they do not pay for CG. Let him know I have sent the chart to [facility] in [place] as requested.
== END 2020-03-09 13:45 | DRG 291 ==
LOC: ED 08:15 → CCU 11:50 → MS 03-04 12:00
PROVIDERS: ADMIT Student in an Organized Health Care Education/Training Program
PROC: 5A09357 Assistance with Respiratory Ventilation, Less than 24 Consecutive Hours, Continuous Positive Airway Pressure (ICD-10-PCS; principal; 2020-03-02)
DX: I50.813 Acute on chronic right heart failure (principal); J96.01 Acute respiratory failure with hypoxia; J44.1 Chronic obstructive pulmonary disease with (acute) exacerbation; F40.00 Agoraphobia, unspecified; I27.20 Pulmonary hypertension, unspecified; Z20.828 Contact with and (suspected) exposure to other viral communicable diseases; K75.9 Inflammatory liver disease, unspecified; E80.6 Other disorders of bilirubin metabolism; Z66 Do not resuscitate; Z87.891 Personal history of nicotine dependence; Z89.212 Acquired absence of left upper limb below elbow; Z88.5 Allergy status to narcotic agent; Z88.8 Allergy status to other drugs, medicaments and biological substances
CPT/HCPCS: 36415; 36600; 71045; 71260; 74177; 80048; 80053; 80074; 81001; 82550; 82553; 82803; 83735; 83874; 83880; 84100; 84484; 85025; 85379; 87040; 93005; 93010; 93306; 94640; 94660; 94760; 94761; 97110; 97112; 97162; 99285-25; J0456; J1100; J1650; J1940; J2930; J7050; J7060; J7121; J7512; Q9967; U0002